=== PATIENT | female | born 1990 ===

== ENCOUNTER 2016-12-15 14:26 | Emergency (ER) | payer BC ==
[2016-12-15 14:51] VITALS: BP 119/77
[2016-12-15] MEDS ORDERED: Tetan/Diph/Pertus SYR(Tdap)* 0.5 ML SYR(BOOSTRIX) use SYR IM ONE (15:09)
--- NOTE | 2016-12-15 15:13 | UC ---
Skin Complaint HPI - HPI Summary HPI Summary: 26 y/o female presents to the urgent care c/o of puncture wound on her RT heel w / a needle yesterday at a wedding in [place] around 1800 pm. Pt reports she stepped at a floral arrangement. Pt reports it is swollen and pain is now 3/10 when walking. Her last tetanus shot was in 2009. Pt denies fever, SOB, chest pain, N/V/D. No other complains. - History of Current Complaint Chief Complaint: UCLowerExtremity Time Seen by Provider: 12/15/16 15:01 Stated Complaint: RIGHT FOOT INJURY Hx Obtained From: Patient Hx Last Menstrual Period: 11/24/16 ?: No Onset/Duration: Sudden Onset, Lasting Hours, Still Present Skin Exposure Onset/Duration: Days Ago - 1 Timing: Constant Onset Severity: Moderate Current Severity: Mild Pain Intensity: 3 Pain Scale Used: 0-10 Numeric Location: Foot (Right) - RT heel at the lateral side Character: Swelling, Painful Aggravating: Touch Alleviating: Nothing, Epinephrine Associated Signs & Symptoms: Positive: Tenderness. Negative: Nausea, Vomiting, Numbness, Fever, Joint Swelling Related History: Trauma - puncture with a neddle - Allergy/Home Medications Allergies/Adverse Reactions: Allergies Allergy/AdvReac Type Severity Reaction Status Date / Time Sulfa Antibiotics Allergy Rash Verified 12/15/16 14:51 Home Medications: Home Medications Acetaminophen [Acetaminophen Extra Stren] 1,000 mg PO Q6H PRN 12/15/16 [History Confirmed 12/15/16] Calcium Citrate-Vitamin D [Citracal + D3 Maximum] 2 tab PO BID 12/15/16 [ History Confirmed 12/15/16] Docusate Sodium [Colace] 100 mg PO BEDTIME 12/15/16 [History Confirmed 12/15/16] Glycopyrrolate 1 mg PO SEE INSTRUCTIONS 12/15/16 [History Confirmed 12/15/16] Polyethylene Glycol 3350* [Miralax*] 17 gm PO DAILY 12/15/16 [History Confirmed 12/15/16] Review of Systems Constitutional: Negative Skin: Other - puncture wound at the lateral side of RT heel Eyes: Negative ENT: Negative Respiratory: Negative Cardiovascular: Negative Gastrointestinal: Negative Genitourinary: Negative Motor: Negative Neurovascular: Negative Musculoskeletal: Negative Neurological: Negative Psychological: Negative All Other Systems Reviewed And Are Negative: Yes PMH/Surg Hx/FS Hx/Imm Hx Previously Healthy: Yes - Surgical History Surgical History: Yes Surgery Procedure, Year, and Place: PERIACETABULAR OSEOTOMY - Family History Known Family History: Positive: Cardiac Disease, Hypertension Family History: Dyslipidemia - Social History Occupation: Employed Full-time Lives: With Family Alcohol Use: Weekly Substance Use Type: None Smoking Status (MU): Never Smoked Tobacco Physical Exam Triage Information Reviewed: Yes Appearance: Well-Appearing, No Pain Distress, Well-Nourished, Thin Vital Signs: Initial Vital Signs Temp 99.3 F 12/15/16 14:43 Pulse 78 12/15/16 14:43 Resp 18 12/15/16 14:43 BP 119/77 12/15/16 14:43 Pulse Ox 100 12/15/16 14:43 Vital Signs Reviewed: Yes Eye Exam: Normal Eyes: Positive: Conjunctiva Clear - PERRLA, EOMI, fundi grossly normal ENT Exam: Normal ENT: Positive: Normal ENT inspection, Hearing grossly normal, Pharynx normal, TMs normal Dental Exam: Normal Neck exam: Normal Neck: Positive: Supple, Nontender, No Lymphadenopathy Respiratory Exam: Normal Respiratory: Positive: Chest non-tender, Lungs clear, Normal breath sounds Cardiovascular Exam: Normal Cardiovascular: Positive: RRR, No Murmur, Pulses Normal, Brisk Capillary Refill Abdominal Exam: Normal Abdomen Description: Positive: Nontender, No Organomegaly, Soft. Negative: CVA Tenderness (R), CVA Tenderness (L) Bowel Sounds: Positive: Present Musculoskeletal Exam: Normal Musculoskeletal: Positive: Strength Intact, ROM Intact, No Edema Neurological Exam: Normal Psychological Exam: Normal Skin: Positive: Other - RT heel, lateral side with discrete erythem, mild swelling s/p puncture wound w/ a needle. FROM of RT foot. Positive pulses, sensation and capillary refill. Pt able to ambulate w/o any difficulty. Course/Dx - Course Course Of Treatment: PE abnormal findings: RT heel, lateral side with discrete erythem, mild swelling s/p puncture wound w/ a needle. FROM of RT foot. Positive pulses, sensation and capillary refill. Pt able to ambulate w/o any difficulty. Pt's last Tetanus vaccine 2009. Dtap oreder, Vaccine placed by Nurse. Pt tolerated well vaccine. Pt w/o Hx of MRSA. Pt Rx Keflex 750mg PO x 7 days. Advised if red streaks or fever develops to return to the urgent care or f/u with her PCP. Pt understood and agreed and left the clinic ambulating. - Differential Diagnoses - Skin Complaint Differential Diagnoses: Cellulitis, Eczema, MRSA, Tinea, Other - Puncture wound , laceration - Diagnoses Provider Diagnoses: RT heel pain s/p puncture wound Discharge - Discharge Plan Condition: Stable Disposition: HOME Prescriptions: Bacitracin OINTMENT* 1 applic TOPICAL BID #1 tube Cephalexin [Keflex 750 MG] 750 mg PO BID #14 cap Patient Education Materials: Puncture Wound (ED) Referrals: [facility] [Outside] - If Needed Additional Instructions: Please take medications as instructed and finish the full course of treatment to avoid recurrent infection. If you do not improve or if symptoms worsen, fever , redness develops, despite taking antibiotics, you should either follow up with your PCP or return to the urgent care for further evaluation and treatment.
== END 2016-12-15 15:26 | disposition home or self-care (01) ==
LOC: UCCORT 14:26
DX: S91.331A Puncture wound without foreign body, right foot, initial encounter (principal); W26.8XXA Contact with other sharp object(s), not elsewhere classified, initial encounter; Y93.89 Activity, other specified; Y92.9 Unspecified place or not applicable; Z23 Encounter for immunization; Z88.2 Allergy status to sulfonamides
CPT/HCPCS: 90471; 90715; 99212; G0463